=== PATIENT | female | born 1945 | race Caucasian/White ===

== ENCOUNTER 2017-02-02 17:23 | Emergency (ER) | payer OTHER, BC ==
[2017-02-02 19:46] VITALS: BP 143/87
== END 2017-02-02 19:46 | disposition home or self-care (01) ==
LOC: ED 17:23
DX: S50.01XA Contusion of right elbow, initial encounter (principal); S39.82XA Other specified injuries of lower back, initial encounter; S09.90XA Unspecified injury of head, initial encounter; E03.9 Hypothyroidism, unspecified; Z88.8 Allergy status to other drugs, medicaments and biological substances; W01.198A Fall on same level from slipping, tripping and stumbling with subsequent striking against other object, initial encounter; Y93.89 Activity, other specified; Y92.89 Other specified places as the place of occurrence of the external cause; Y99.8 Other external cause status